=== PATIENT | female | born 1960 | race Caucasian/White ===

== ENCOUNTER 2019-09-11 14:05 | Emergency (ER) | payer MEDICARE ==
[~2019-09-11] VITALS: Ht 162.6 cm; Wt 56.8 kg
[2019-09-11 14:18] VITALS: Ht 162.6 cm; Wt 56.8 kg
[2019-09-11] MEDS ORDERED: SLOW RELEASE I160 MG (14:20)
[2019-09-11] MEDS ORDERED: NEURONTIN 300300 MG PO (14:20)
[2019-09-11] MEDS ORDERED: ALDACTONE25 MG (14:20)
[2019-09-11] MEDS ORDERED: KEFLEX500 MG PO (16:14)
[2019-09-11 17:28] VITALS: BP 128/69
== END 2019-09-11 17:34 | disposition home or self-care (01) ==
LOC: D.ER 14:05
DX: S09.90XA Unspecified injury of head, initial encounter (principal); S80.02XA Contusion of left knee, initial encounter; S50.02XA Contusion of left elbow, initial encounter; S51.012A Laceration without foreign body of left elbow, initial encounter; W01.10XA Fall on same level from slipping, tripping and stumbling with subsequent striking against unspecified object, initial encounter; Y93.9 Activity, unspecified; Y92.9 Unspecified place or not applicable